=== PATIENT | male | born 1955 | race Caucasian/White ===

== ENCOUNTER 2017-03-19 14:50 | Outpatient (CLI) | payer MEDICAID ==
[~2017-03-19 14:50] MED LIST: ALBUTEROL-200 PUFFS/ IH; ALLOPURINOL100 MG PO; ALLOPURINOL300 M1 PO; ASPIRIN 81MG TA81 MG PO; ASPIRIN325 M1 PO; ATORVASTATIN 8080 MG PO; CARVEDILOL 25MG25 MG PO; CLARITIN10 MG OR; CLOPIDOGREL75 MG PO; DIGOXIN0.125 MG PO; DIGOXIN0.25 MG PO; FLONASE 50 MCG16 GM; FUROSEMIDE40 MG PO; GABAPENTIN300 MG PO; HUMULIN 70100 UNITS/ SC; HYDROCODONE-APA1 TA2 PO; IMDUR 30MG. TAB30 MG PO; INSULIN GL100 UNITS/ SC; INSULIN RE100 UNITS/ SC; LOSARTAN POTAS100 MG PO; METOPROLOL25 MG PO; PHENERGAN 25MG.25 M1 PO; POTASSIUM CHLO10 ME3 PO; PREVACID 30MG C30 M1 PO; PRILOSEC20 M1 PO; SPIRONOLACTONE25 MG PO; WARFARIN SOD5 MG PO; WARFARIN SODIU2.5 MG PO
== END 2017-03-19 15:17 ==
LOC: ACC 14:50
DX: Z95.2 Presence of prosthetic heart valve (principal); Z79.01 Long term (current) use of anticoagulants; Z51.81 Encounter for therapeutic drug level monitoring
CPT/HCPCS: G0463

== ENCOUNTER → 2017-06-06 | Outpatient (CLI) | payer MEDICAID ==
[2017-06-06 13:46] LABS: LYMPH # 1.2 K/mm3 (0.7-4.5); LYMPH % 20.2 % (10-50)
[2017-06-06 13:58] LABS: HEMOGLOBIN 13.9 g/dL (14.1-18.0)
[2017-06-06 14:45] LABS: BUN 25 mg/dL (7-18)
[2017-06-06 14:48] LABS: GFR (ESTIMATED) 68 ML/MIN (>60)
== END ==
LOC: CARL-LAB 11:26
PROVIDERS: Internal Medicine Adolescent Medicine
DX: E11.9 Type 2 diabetes mellitus without complications (principal); I50.22 Chronic systolic (congestive) heart failure; Z95.2 Presence of prosthetic heart valve

== ENCOUNTER 2017-07-02 09:45 | Outpatient (CLI) | payer MEDICAID | END 2017-07-02 16:15 | LOC: ACC 09:45 | DX: Z95.2 Presence of prosthetic heart valve (principal); Z79.01 Long term (current) use of anticoagulants; Z51.81 Encounter for therapeutic drug level monitoring | CPT/HCPCS: G0463 ==

== ENCOUNTER 2017-07-16 09:05 | Outpatient (CLI) | payer MEDICAID | END 2017-07-16 13:45 | LOC: ACC 09:05 | DX: Z95.2 Presence of prosthetic heart valve (principal); Z79.01 Long term (current) use of anticoagulants; Z51.81 Encounter for therapeutic drug level monitoring | CPT/HCPCS: G0463 ==